=== PATIENT | male | born 1950 | race Caucasian/White ===

== ENCOUNTER 2021-05-12 14:40 | Emergency (ER) | payer MEDICARE ==
[~2021-05-12] VITALS: Ht 185.4 cm; Wt 130.0 kg
[~2021-05-12 14:40] MED LIST: EFFIENT PO; LISINOPRIL5 MG OR; METOPROLOL50 MG OR; SIMVASTATIN40 MG OR
[2021-05-12 15:44] VITALS: BP 155/86
[2021-05-12] MEDS ORDERED: LIDOCAINE PATCH 55 % TOP (18:56)
[2021-05-12] MEDS ORDERED: PERCOCET 5/321 COMBO PO (18:56)
[2021-05-12] MEDS ORDERED: TORADOL PO (18:56)
== END 2021-05-12 19:05 | disposition home or self-care (01) ==
LOC: ED 14:40
DX: M54.32 Sciatica, left side (principal); M54.31 Sciatica, right side; M10.9 Gout, unspecified

== ENCOUNTER 2021-09-24 14:28 | Emergency (ER) | payer MEDICARE ==
[~2021-09-24 14:28] MED LIST changes: +LIDOCAINE PATCH 55 % TOP; +PERCOCET 5/321 COMBO PO; +TORADOL PO
== END 2021-09-24 16:49 | disposition left against medical advice (07) ==
LOC: ED 14:28 → LWOBS 16:49
DX: Z53.21 Procedure and treatment not carried out due to patient leaving prior to being seen by health care provider (principal)

== ENCOUNTER 2024-02-11 16:51 | Emergency (ER) | payer MEDICARE ==
[2024-02-11] VITALS (12 sets, daily range): BP systolic 98–121; BP diastolic 43–69
[~2024-02-11] VITALS: Ht 185.4 cm; Wt 104.0 kg
[2024-02-11] MEDS ORDERED: predniSONE 20 MG/TAB PO ONE (19:40)
[2024-02-11] MEDS ORDERED: AZITHROMYCIN 250 MG/TAB PO ONE (19:40)
[2024-02-11] MEDS ORDERED: AMOXICILLIN & POT CLAVULANATE 875 MG/TAB PO ONE (19:40)
[2024-02-11] MEDS ORDERED: AMOX/K CLAV875 M1 PO (19:43)
[2024-02-11] MEDS ORDERED: PREDNISONE20 MG PO (19:43)
[2024-02-11] MEDS ORDERED: PAXLOVID PO (19:43)
[2024-02-11] MEDS ORDERED: ZITHROMAX250 MG PO (19:43)
== END 2024-02-11 20:24 | disposition home or self-care (01) ==
LOC: ED 16:51
DX: U07.1 COVID-19 (principal); J12.82 Pneumonia due to coronavirus disease 2019; I11.0 Hypertensive heart disease with heart failure; I50.9 Heart failure, unspecified; J44.9 Chronic obstructive pulmonary disease, unspecified